=== PATIENT | female | born 1965 | race Asian ===

== ENCOUNTER 2018-01-15 19:16 | Emergency (ER) | payer BC ==
[~2018-01-15] VITALS: Ht 160 cm; Wt 43.5 kg
--- NOTE | 2018-01-15 19:25 | NUR ---
Ambulated to ER Room 2A c/o difficulty of urination. Pt awake, alert and cooperative. In no apparent acute distress.
[2018-01-15] MEDS ORDERED: CLONAZEPAM 1 MG TABLET (19:38)
[2018-01-15] MEDS ORDERED: PHENAZOPYRIDINE 200 MG TAB (19:38)
[2018-01-15] MEDS ORDERED: LEVOFLOXACIN 750 MG TABLET (19:38)
--- NOTE | 2018-01-15 19:40 | NUR ---
Dr. Peralta in room for pt evaluation.
--- NOTE | 2018-01-15 20:00 | NUR ---
Bladder scanner used by . Noted small amount of urine in bladder.
--- NOTE | 2018-01-15 20:05 | NUR ---
In and out cath done aseptically and obtained 100 ml orange colored urine. Pt having menstrual period. Urine specimen sent to lab.
[2018-01-15 20:11] LABS: BASOPHILS % (AUTO) 0.6 % (0.0-2.0); EOSINOPHILS % (AUTO) 0.7 % (0.0-7.0); HEMATOCRIT 36.5 % (31.2-41.9); HEMOGLOBIN 12.6 g/dL (10.9-14.3); LYMPHOCYTES % (AUTO) 19.5 % (20.5-51.5); MEAN CORPUSCULAR HEMOGLOBIN 34.6 uug (24.7-32.8); MEAN CORPUSCULAR HGB CONC 35 g/dL (32.3-35.6); MEAN CORPUSCULAR VOLUME 100.1 fL (75.5-95.3); MONOCYTES # (AUTO) 0.6 K/uL (2.0-10.0); MONOCYTES % (AUTO) 12.6 % (0.0-11.0); NEUTROPHILS # (AUTO) 3.4 K/uL (1.8-8.9); NEUTROPHILS % (AUTO) 66.6 % (38.5-71.5); PLATELET COUNT (AUTO) 180 K/uL (179-408); RED BLOOD CELL COUNT(AUTO) 3.65 MIL/uL (3.63-4.92); WHITE BLOOD COUNT (AUTO) 5.1 K/uL (3.8-11.8)
[2018-01-15 20:27] LABS: CREATININE 0.8 mg/dL (0.6-1.3)
[2018-01-15 20:32] LABS: BILIRUBIN,DIRECT 0.2 mg/dL (0.0-0.2); BILIRUBIN,TOTAL 0.7 mg/dL (0.2-1.0); TOTAL PROTEIN, SERUM 6.7 g/dL (6.4-8.2)
[2018-01-15 20:54] LABS: *BLOOD, URINE 2+ (NEGATIVE); UGLUCOSE 1+ (NEGATIVE)
[2018-01-15 21:07] LABS: *CLARITY,URINE HAZY (CLEAR)
[2018-01-15 21:08] LABS: *BILIRUBIN,URIN 1+ (NEGATIVE); *PROTEIN,URINE 1+ (NEGATIVE)
[2018-01-15 21:09] LABS: *KETONES,URINE 2+ (NEGATIVE); LEUKOCYTE ESTERASE ,URINE 1+ (NEGATIVE); NITRITE, URINE NEGATIVE (NEGATIVE)
[2018-01-15 21:13] LABS: *COLOR,URINE ORANGE (YELLOW)
[2018-01-15 21:14] LABS: RBC,URINE 50-80 /HPF (0-3)
[2018-01-15 21:15] LABS: BACTERIA,URINE FEW /HPF (NONE SEEN); MUCUS,URINE MANY /LPF (0-FEW); SQUAMOUS EPITHELIAL CELL,UR MODERATE /HPF (NONE SEEN)
--- NOTE | 2018-01-15 21:45 | NUR ---
Patient discharged to home in stable conditon. Written and verbal after care instructions given. Med prescription given. Patient verbalizes understanding of instructions.
== END 2018-01-15 21:45 | disposition home or self-care (01) ==
LOC: ER 19:23
DX: R31.9 Hematuria, unspecified (principal); K21.9 Gastro-esophageal reflux disease without esophagitis
CPT/HCPCS: 36415; 80048; 80076; 81001; 84484; 84703; 85025; 85730; 87086; 99284; A4663; C1758; 70030-TC